=== PATIENT | male | born 1960 | race Caucasian/White ===

== ENCOUNTER → 2016-12-05 07:51 | Outpatient (CLI) | payer MEDICAID ==
[2016-07-21 10:25] VITALS: BMI 25.3
[~2016-12-05 07:51] MED LIST: ASPIRIN81 MG PO; ELIQUIS5 MG PO; FISH OIL 1,0001 CA1 PO; HYDROCODONE-APA1 TAB PO; K-DUR20 MEQ PO; LASIX20 MG PO; LEVAQUIN750 MG PO; LOPRESSOR25 MG PO; OMEPRAZOLE20 M1 PO; PROVENTIL HFA6.7 GM INH; QVAR8.7 GM INH; ZESTORETIC 20-1 EACH PO
[2016-12-05 08:54] LABS: BILIRUBIN - DIRECT 0.08 mg/dL (0.00-0.30); BILIRUBIN - INDIRECT 0.31 mg/dL (0.00-1.00); BILIRUBIN - TOTAL 0.39 mg/dL (0.2-1.3); PROTEIN - SERUM 7.5 g/dL (6.4-8.2)
== END | disposition home or self-care (01) ==
LOC: D.US 07:51
PROVIDERS: Internal Medicine Pulmonary Disease
DX: R10.11 Right upper quadrant pain (principal)

== ENCOUNTER → 2016-12-25 09:06 | Outpatient (CLI) | payer MEDICAID ==
[2016-07-21 10:25] VITALS: BMI 25.3
== END | disposition home or self-care (01) ==
LOC: D.RT 09:06
DX: J44.9 Chronic obstructive pulmonary disease, unspecified (principal)

== ENCOUNTER → 2017-01-25 12:40 | Outpatient (CLI) | payer MEDICAID ==
[2016-07-21 10:25] VITALS: BMI 25.3
== END | disposition home or self-care (01) ==
LOC: D.LAB 01-16 10:30 → D.CT 01-16 11:00
DX: I26.99 Other pulmonary embolism without acute cor pulmonale (principal)

== ENCOUNTER 2017-02-02 05:07 | Day surgery (SDC) | payer MEDICAID ==
[~2017-02-02] VITALS: Ht 175.3 cm; Wt 83.0 kg
--- NOTE | ~2017-02-02 | OP ---
PATIENT NAME: DENA WESTFALL MEDICAL RECORD: [id number] :60 LOCATION:D.OPS ADMISSION DATE: SURGEON: RASHEED AL MD DATE OF OPERATION: 02/02/2017 PREOPERATIVE DIAGNOSES: 1. Gallstones. 2. Hypertension. 3. Coronary artery disease. 4. Chronic obstructive pulmonary disease. 5. Gastroesophageal reflux disease. 6. Tobacco dependence syndrome. POSTOPERATIVE DIAGNOSES: 1. Gallstones. 2. Hypertension. 3. Coronary artery disease. 4. Chronic obstructive pulmonary disease. 5. Gastroesophageal reflux disease. 6. Tobacco dependence syndrome. PROCEDURE: Laparoscopic cholecystectomy. SURGEON: Rasheed Al MD REPORT OF PROCEDURE: The patient's abdomen was prepped and draped in sterile fashion. A cutdown was made on the superior aspect of the umbilicus. Electrocautery was used to dissect through the subcutaneous tissues, 0 Vicryls were placed in the fascia bilaterally and the fascia was incised with 15 blade and then entered the peritoneal cavity and placed a 12-mm Alyssa port. Under direct visualization, a 5 mm trocar was placed in the epigastrium and two more 5-mm trocars were placed in the right subcostal region. The gallbladder was grasped and elevated. The cystic artery and cystic duct were dissected free and these were clipped proximally and distally and ligated in standard fashion. The gallbladder was then taken off the liver bed using electrocautery and placed in the right upper quadrant. Any bleeding from the liver bed was then treated with electrocautery. The ports and insufflation were then removed and the gallbladder was taken out through the umbilicus. The umbilical fascia was closed with interrupted 0 Vicryls times 3. The wounds were irrigated out with normal saline and infused with 10 mL of 0.25% Marcaine with epinephrine. The skin incisions were all closed with subcutaneous 5-0 Monocryl and dressed appropriately. COMPLICATIONS: None. CONDITION: Stable. ANESTHESIA: General endotracheal and local. BLOOD LOSS: Minimal. TRANSINT:[id number] Voice Confirmation ID: [id number] DOCUMENT ID: [id number] OPERATIVE REPORT [id number] DENA WESTFALL RASHEED AL MD CC: VITOR FAY DO [id number] DICTATION DATE: 02/02/17 09 CLINICAL QUALITY ANALYST: 02/02/17 1749 [facility] 02/02/17 [facility] [address] [place] [address]
[~2017-02-02 05:07] MED LIST changes: +ADVIL200 MG PO; +ANORO ELLIPTA1 EACH INH; +COMBIVENT RESPIM4 GM INH; +EDARBI40 MG PO; +FLUTICASONE PRO16 GM NASAL; +MUCINEX600 MG PO; +PRAVASTATIN SOD10 MG PO; +QVAR8.7 G1 INH; +SINGULAIR10 MG PO
[2017-02-02 05:54] VITALS: BP 165/75; Ht 175.3 cm; Wt 83.0 kg
[2017-02-02 06:16] LABS: BASOPHILS 0.5 % (0-2); HEMATOCRIT 38.3 % (42.0-54.0); IMMATURE GRANULOCYTES 0.2 % (0-5); LYMPHOCYTES 19.8 % (15-50); MCH 30.2 pg (26.0-34.0); MCHC 33.9 g/dL (31.0-37.0); MCV 88.9 fL (80.0-100.0); MEAN PLATELET VOLUME 10.8 fL (7.4-10.4); MONOCYTES 9.8 % (2-11); NEUTROPHILS 63.7 % (40-80); RBC 4.31 10x6/uL (4.20-6.10); RDW 14.1 % (11.5-14.5); WBC 6.3 10x3/uL (4.8-10.8)
[2017-02-02 06:19] LABS: PLATELET COUNT 191 10x3/uL (130-400)
[2017-02-02 06:23] LABS: CALC OSMOLALITY 286 mosm/kg (275-300); CALCIUM 8.7 mg/dL (8.5-10.1); CARBON DIOXIDE 25.5 mmol/L (21.0-32.0); CHLORIDE - SERUM 108 mmol/L (98-107); GLUCOSE 133 mg/dL (74-106); POTASSIUM - SERUM 4.1 mmol/L (3.5-5.1); SODIUM 142 mmol/L (136-145); UREA NITROGEN 19 mg/dL (7-18); eGFR NON AFRICAN AMERICAN 82 mL/min (90-120)
[2017-02-02] MEDS ORDERED: HYDROCODONE-APA1 TAB PO (09:00)
--- NOTE | 2017-02-02 10:07 | NUR ---
1000-FULL LIQUIDS SERVED. CO PAIN RATED 5 ON PAIN SCALE. NORCO 10MG 1 GIVEN FOR RELIEF.
--- NOTE | 2017-02-02 15:46 | NUR ---
1030 UP TO BATHROOM VOIED 1045 IV DC WITH CATHERR TIP INTACT 1100 C/O NAUSEA 1125 STILL NAUSEA ,ZOFRAN 4MG ODT GIVEN 1200 VOMTING 1300 FEELS BETTER
== END 2017-02-02 13:00 | disposition home or self-care (01) ==
LOC: D.OPS 05:07 → D.PAN 07:30 → D.OPS 07:30
DX: K80.10 Calculus of gallbladder with chronic cholecystitis without obstruction (principal); I10 Essential (primary) hypertension; I25.10 Atherosclerotic heart disease of native coronary artery without angina pectoris; J44.9 Chronic obstructive pulmonary disease, unspecified; K21.9 Gastro-esophageal reflux disease without esophagitis; F17.200 Nicotine dependence, unspecified, uncomplicated

== ENCOUNTER 2019-03-20 10:21 | Outpatient (CLI) | payer MEDICARE, BC ==
[~2019-03-20] VITALS: Ht 175.3 cm; Wt 81.8 kg
[2019-03-20 10:39] LABS: BASOPHILS 0.4 % (0-2); EOSINOPHILS 1.8 % (0-7); HEMATOCRIT 41.8 % (42.0-54.0); HEMOGLOBIN 14.6 g/dL (13.5-17.5); IMMATURE GRANULOCYTES 0.3 % (0-5); LYMPHOCYTES 20.8 % (15-50); MCH 29.8 pg (26.0-34.0); MCHC 34.9 g/dL (31.0-37.0); MCV 85.3 fL (80.0-100.0); MONOCYTES 7.2 % (2-11); NEUTROPHILS 69.5 % (40-80); PLATELET COUNT 193 10x3/uL (130-400); RDW 13.7 % (11.5-14.5); WBC 7.3 10x3/uL (4.8-10.8)
[2019-03-20 11:03] LABS: ANION GAP 12.3 mmol/L (8-16); CALCIUM 8.8 mg/dL (8.5-10.1); CARBON DIOXIDE 27.3 mmol/L (21.0-32.0); CREATININE - SERUM 1.1 mg/dL (0.6-1.3); POTASSIUM - SERUM 4.6 mmol/L (3.5-5.1)
[2019-03-20 12:12] LABS: APTT 28.9 SECONDS (22.8-39.4); INR 1.04 (0.85-1.17); PROTIME 13.1 SECONDS (11.6-15.0)
[2019-03-20] MEDS ORDERED: TRELEGY ELLIPT1 EACH INH (12:29)
[2019-03-20 12:31] VITALS: BP 156/72; Ht 175.3 cm; Wt 81.8 kg
--- NOTE | 2019-03-20 14:01 | NUR ---
1345-DR COVARRUBIAS HERE TO SEE PATIENT. PROCEDURE CX. 1400-IV D/C AND DISCHARGE INSTRUCTIONS REVIEWED. 1402-VOIDS AND DRESSES. 1406-DISCAHRGE AMBULATORY.
== END 2019-03-20 14:06 | disposition home or self-care (01) ==
LOC: D.SP 10:21 → D.CT 13:00 → D.SP 14:06
PROVIDERS: Specialist; ATTEND Clinical Nurse Specialist Family Health
DX: R59.0 Localized enlarged lymph nodes (principal); Z53.9 Procedure and treatment not carried out, unspecified reason; Z01.812 Encounter for preprocedural laboratory examination

== ENCOUNTER → 2021-01-10 09:20 | Outpatient (CLI) | payer OTHER ==
[2019-03-20 12:31] VITALS: BMI 26.6
[~2021-01-10 09:20] MED LIST changes: +TRELEGY ELLIPT1 EACH INH
== END | disposition home or self-care (01) ==
LOC: D.HCCARDIO 09:20
PROVIDERS: ATTEND Internal Medicine Cardiovascular Disease
DX: R06.00 Dyspnea, unspecified (principal)

== ENCOUNTER 2021-01-17 06:49 | Day surgery (SDC) | payer MEDICARE ==
[~2021-01-17] VITALS: Ht 177.8 cm; Wt 83.4 kg
--- NOTE | ~2021-01-17 | HEMODYNAMI ---
PATIENT:DENA WESTFALL MEDICAL RECORD: [id number] : 60 LOCATION:[facility] ADMISSION DATE: 01/17/21 Generatedon:110:03 Patient name: DENA WESTFALL Patient #: [id number] SSN: [id number] : 1960 Date of study: 01/17/2021 Page: Of Hemodynamic Procedure Report Patient Data Patient Demographics Procedure consent was obtained First Name: DENA Gender: Male Last Name: MALOU : 1960 Middle Initial: KATHY Age: 60 year(s) Patient #: [id number] Race: Unknown SSN: [id number] Additional ID: [id number] Contact details [address]: [address] [place] [address] State: [place] City: [place] Zip code: [address] Past Medical History Allergies: No known allergies Admission Admission Data Admission Date: 01/17/2021 Admission Time: 6:49 Admit Source: Other Insurance Payor: Medicaid [facility] #: [id number] Height (in.): 69.69 BSA: 2 (m2) Height (cm.): 177 BMI: 26.49 (kg/m2) Weight (lbs.): 182.98 Weight (kg.): 83 Lab Results Lab Result Date: 01/17/2021 Lab Result Time: 0:00 Biochemistry Name Units Result Min Max BUN mg/dl 21 --(----)-* 7 18 Creatinine mg/dl 1.2 --(---*)-- 0.6 1.3 eGFR ml/min 66 *-(----)-- 90 120 NONAFRICAN CBC Name Units Result Min Max Hemoglobin g/dl 14 --(*---)-- 13.5 17.5 Procedure Procedure Types Cath Procedure Diagnostic Procedure LHC LHC w/Coronaries w/Grafts Sedation Charges Moderate Sedation 10-24 minutes Procedure Description Procedure Date Procedure Date: 01/17/2021 Procedure Start Time: 9:46 Procedure End Time: 9:57 Procedure Staff Name Function Gurvinder Anthony MD Performing Physician Ayanna Delacruz RT Monitor Maryann Lou RT Scrub Johan Tilley RN Nurse Ilia Díaz RN Nurse Procedure Data Cath Procedure Fluoroscopy Diagnostic fluoroscopy Total fluoroscopy Time: 2.6 time: 2.6 min min Diagnostic fluoroscopy Total fluoroscopy dose: 470 dose: 470 mGy mGy Contrast Material Contrast Material Type Amount (ml) Isovue 300 90 Entry Location Entry Primary Successful Side Size Upsize Upsize Entry Closure Succes sful Closure Location (Fr) 1 (Fr) 2 (Fr) Remarks Device Remarks Femoral Right 5 Fr Exoseal artery Estimated blood loss: 10 ml Diagnostic catheters Device Type Used For End Catheter Placement MULTIPACK JL 4.0 5Fr Procedure catheter MULTIPACK 3DRC 5Fr Procedure catheter MULTIPACK Pigtail 5 Fr Ventriculography catheter Procedure Complications No complications Procedure Medications Medication Administration Route Dosage 0.9% NaCl I.V. 100 ml/hr Oxygen etCO2 Nasal cannula 2 l/min Heparin Flush Bag added to field 2 bags (1000units/500ml NS) Lidocaine 2% added to field 20 Fentanyl I.V. 50 mcg Versed I.V. 1 mg Fentanyl I.V. 50 mcg Versed I.V. 1 mg Fentanyl I.V. 50 mcg Versed I.V. 1 mg Lopressor I.V. 5 mg Hemodynamics Rest BSA: 2 (m2) HGB: 14 (g/dl) O2 Consumption: Estimated: 246.77 (ml/min) O2 Consump tion indexed: Estimated:123.38 (ml/min/m) Heart Rate: 86 (bpm) Pressure Samples Time Site Value (mmHg) Purpose Heart Use Rate(bpm) 9:53 LV 190/17,23 Snapshot 71 9:54 AO 171/92(123) Pullback 71 Gradients Valve Time Site Site 2 Mean SEP/DFP Peak To Heart Use 1 (mmHg) (sec/min) Peak Rate (mmHg) (bpm) Aortic 9:54 LV AO 0 1 71 171/92(123) Calculations Valve P-P Mean Valve Index Valve Source Name Gradient Area Flow (cm2) Aortic 0 0 Snapshots Pre Cath Intra NCS Post Cath Vital Signs Time Heart Resp SPO2 etCO2 NIBP (mmHg) Rhythm Pain Sedation Rate (ipm) (%) (mmHg) Status Level (bpm) 9:37:04 83 10 100 0 200/96(154) NSR 0 (11) 10(A) , No pain 9:41:36 78 17 98 0 200/98(159) NSR 0 (11) 10(A) , No pain 9:46:11 81 19 98 0 205/104(156) NSR 0 (11) 10(A) , No pain 9:50:41 75 20 96 0 203/97(144) NSR 0 (11) 10(A) , No pain 9:55:11 74 14 97 0 195/104(145) NSR 0 (11) 10(A) , No pain 10:02:26 70 19 94 0 178/90(147) NSR 0 (11) 10(A) , No pain Medications Time Medication Route Dose Verified Delivered Reason Notes Ef fectiveness by by 9:33:39 0.9% NaCl I.V. 100 Gurvinder Johan used for ml/hr [facility] Tilley RN procedure 9:34:07 Oxygen etCO2 2 Gurvinder Johan used for Nasal l/min [facility] Tilley RN procedure cannula 9:34:17 Heparin Flush added 2 Gurvinder Gurvinder used for Bag to bags [facility] procedure (1000units/500ml field MD JAIMES NS) 9:34:29 Lidocaine 2% added 20ml Gurvinder Gurvinder for local to vial [facility] anesthetic field MD JAIMES 9:44:33 Fentanyl I.V. 50 Gurvinder Johan for sedation mcg [facility] Tilley RN, MD 9:44:40 Versed I.V. 1 mg Gurvinder Johan for sedation [facility] Til[facility] RN, MD 9:47:29 Fentanyl I.V. 50 Gurvinder Johan for sedation missy Perry RN, MD 9:47:33 Versed I.V. 1 mg Gurvinder Johan for sedation [facility] Tilley RN, MD 9:51:41 Fentanyl I.V. 50 Gurvinder Johan for sedation missy Perry RN, MD 9:51:44 Versed I.V. 1 mg Gurvinder Johan for sedation [facility] Til[facility] RN, MD 9:51:57 Lopressor I.V. 5 mg Gurvinder Johan [address] [facility] patrick MD Procedure Log Time Note 9:19:20 Informed consent obtained and on chart 9:20:17 Ilia Díaz RN sent for patient. Start room use. 9:24:51 Admit Source: Other 9:24:56 Insurance Payor : Medicaid 9:26:19 Patient Height : 69.69 inches 9::22 Patient Weight : 182.98 lbs 9:: Lab Result : eGFR NONAFRICAN 66 ml/min 9::57 Lab Result : Hemoglobin 14 g/dl 9:: Lab Result : BUN 21 mg/dl 9:: Lab Result : Creatinine 1.2 mg/dl 9:27:05 Procedure type changed to Cath procedure, Diagnostic procedure, LHC, LHC w/Coronaries w/Grafts, Sedation Charges, Moderate Sedation 10-24 minutes 9::22 Time tracking: Regular hours (M-F 7:00 - 5:00) 9::28 Plan of Care:Hemodynamics will remain stable., Cardiac rhythm will remain stable., Comfort level will be maintained., Respiratory function will remain adequate., Patient/ family verbilizes understanding of procedure., Procedure tolerated without complication., Recovers from procedure without complications.. 9:27:38 Procedure Status Elective Heart Cath (OP). 9:31:09 Patient received from Pre/Post Procedure Room to CCL 1 Alert and oriented. Tansferred to table in Supine position. 9:31:11 Warm blankets applied, and carlitos hugger turned on for patient comfort. 9:31:12 Correct patient and procedure confirmed by team. 9:31:13 ECG and BP/O2 sat monitors applied to patient. 9:33:39 0.9% NaCl 100 ml/hr I.V. was administered by Johan Tilley RN; used for procedure; Verbal order read back and verified. 9:34:07 Oxygen 2 l/min etCO2 Nasal cannula was administered by Johan Tilley RN; used for procedure; Verbal order read back and verified. 9:34:17 Heparin Flush Bag (1000units/500ml NS) 2 bags added to field was administered by Gurvinder Anthony MD; used for procedure; Verbal order read back and verified. 9:34:29 Lidocaine 2% 20ml vial added to field was administered by Gurvinder Anthony MD; for local anesthetic; Verbal order read back and verified. 9:34:36 Vital chart was started 9:39:38 Baseline sample Acquired. 9:39:46 Rhythm: sinus rhythm 9:39:49 Full Disclosure recording started 9:42:07 H&P Date Dictated: 12/27/2020 Within 30 days and on chart., H&P Addendum completed by physician on day of procedure. (MUST COMPLETE FOR ALL OUTPATIENTS). 9:42:10 Pre-procedure instructions explained to patient. 9:42:13 Family in patients room. 9:42:15 Patient NPO since Midnight. 9:42:27 Patient allergic to No known allergies 9:42:30 Is the patient allergic to Iodine/contrast media? No. 9:42:49 Was the patient premedicated? Yes 9:42:52 Is patient on blood thinner?No 9:42:53 Patient diabetic? No. 9:42:58 Snore? Yes 9:42:59 Sleep apnea? No 9:43:02 Airway obstruction? Yes ? 9:43:07 Patient pain scale 0/10 ?. 9:43:18 IV patent on arrival in left forearm with 0.9% NaCl at KVO. 9:43:28 Lab results completed and on chart. 9:43:57 Stress Test: yes; abnormal inferior/apical 9:44:03 Right groin area was prepped with chlora-prep and draped in sterile fashion 9:44:05 Alarms reviewed by R. N. 9:44:06 Sharps counted by scrub and verified by R.N. 9:44:07 Physician arrived 9:44:08 --------ALL STOP TIME OUT------ 9:44:20 Final Timeout: patient, procedure, and site verified with staff and physician. All members of the team are in agreement. 9:44:33 Fentanyl 50 mcg I.V. was administered by Johan Tilley RN; for sedation; Verbal order read back and verified. 9:44:40 Versed 1 mg I.V. was administered by Johan Tilley RN; for sedation; Verbal order read back and verified. 9:45:37 Right groin site verified by team. 9:45:41 Fire Safety Assessment: A--An alcohol-based skin anteseptic being used preoperatively., C--Open oxygen or nitrous oxide is being used., D--An ESU, laser, or fiber-optic light is being used. 9:45:47 Physical assessment completed. ASA score P 3 - A patient with severe systemic disease as per Gurvinder Anthony MD. 9:46:12 2) 60-89 Mildly reduced kidney function, and other findings (as for stage 1) point to kidney disease. 9:46:15 Maximum allowable contrast dose (3.7 X eGFR X 0.75)183 ml. 9:46:20 Sedation plan: IV Moderate Sedation Medication:Versed, Fentanyl 9:46:24 Use device set Femoral Dx 9:46:26 Procedure started. 9:46:30 Local anesthetic to right femoral artery with Lidocaine 2% by Gurvinder Anthony MD.INITIAL ACCESS ONLY 9:46:48 A 5 Fr sheath was inserted into the Right Femoral artery 9:46:50 ACIST Syringe (55542) opened to sterile field. 9:46:50 Bag Decanter (2002S) opened to sterile field. 9:46:51 Medline Cath Pack ([id number]) opened to sterile field. 9:46:52 ACIST Hand Control (45051) opened to sterile field. 9:46:53 ACIST Manifold (24245) opened to sterile field. 9:46:53 DIAGNOSTIC Multipack 5Fr catheter set ([id number]) opened to sterile field. 9:46:54 Tegaderm 4 x 4 (1626W) opened to sterile field. 9:46:56 SHEATH 5FR Knox (NTC171) opened to sterile field. 9:46:56 EMERALD Guide Wire (878-796) opened to sterile field. 9:47:29 Fentanyl 50 mcg I.V. was administered by Johan Tilley RN; for sedation; Verbal order read back and verified. 9:47:33 Versed 1 mg I.V. was administered by Johan Tilley RN; for sedation; Verbal order read back and verified. 9:47:44 A MULTIPACK JL 4.0 5Fr catheter was advanced over the wire and used for Procedure. 9:47:48 LCA angiography performed. 9:48:09 Catheter removed. 9:48:16 A MULTIPACK 3DRC 5Fr catheter was advanced over the wire and used for Procedure. 9:49:06 RCA angiography performed. 9:49:57 SVG to Diag angiography performed. 9:50:08 SVG to Circ angiography performed. 9:51:04 HAYNES to LAD angiography performed. 9:51:41 Fentanyl 50 mcg I.V. was administered by Johan Jarek RN; for sedation; Verbal order read back and verified. 9:51:44 Versed 1 mg I.V. was administered by Johan Tilley RN; for sedation; Verbal order read back and verified. 9:51:57 Lopressor 5 mg I.V. was administered by Johan Tilley RN; for hypertension; Verbal order read back and verified. 9:52:14 Catheter removed. 9:52:22 A MULTIPACK Pigtail 5 Fr catheter was advanced over the wire and used for Ventriculography. 9:52:32 LV gram done using HUA 9:52:39 Zero performed for pressure channel P1 9:54:06 EF : 30 % 9:54:08 EXOSEAL 5Fr (EX500) opened to sterile field. 9:54:18 Catheter removed. 9:54:29 Sheath removed intact; hemostasis achieved with Exoseal to the Right Femoral artery. 9:54:48 Procedure ended.(Physican Out) 9:55:01 Fluoroscopy time 02.60 minutes. 9:55:37 Fluoroscopy dose: 470 mGy 9:55:37 Flurop Dose total: 470 9:55:44 Dose Area Product 85022 mGy/cm. 9:55:48 Contrast amount:Isovue 300 90ml. 9:55:51 Maximum allowable dose exceeded? No. 9:55:52 Sharps counted by scrub and verified by R.N. 9:55:54 Insertion/operative site no bleeding no hematoma. 9:55:58 Post-op/insertion site Right Femoral artery dressed using a 4 x 4 and Tegaderm. 9:56:08 Post-procedure physical assessment completed. ASA score P 3 - A patient with severe systemic disease as per Gurvinder Anthony MD. 9:56:11 Post procedure rhythm: unchanged. 9:56:14 Estimated blood loss: 10 ml 9:56:16 Post procedure instruction explained to patient.Patient verbalizes understanding. 9:56:31 Procedure and supply charges have been captured, reviewed, submitted and are correct. 9:57:07 Procedure Complication : No complications 9:57:10 Vital chart was stopped 9:57:15 [facility] Findings: mild to moderate CAD (<70%) 9:57:24 Operative report dictated upon procedure completion. 9:57:33 Patient transfered to Pre/Post Procedure Room with Stretcher. 9:57:36 Procedure ended. 9:57:36 Full Disclosure recording stopped 9:57:43 End room use (Document Last) 9:58:05 End room use (Document Last) 9:58:44 End room use (Document Last) Device Usage Item Name Manufacture Quantity Catalog Hospital Part Current Minimal L ot# / Number Charge Number Stock Stock Serial# Code ACIST Acist 1 85279 653255 768142 251216 20 Syringe Medical (66720) Systems Inc Bag Microtek 1 2001S 283605 12915 925459 5 Decanter Medical Inc. (2001S) Medline Medline 1 [id number] 994263 81058 080123 5 Cath Pack ([id number]) ACIST Hand Acist 1 10394 388519 607208 627636 5 Control Medical (57389) Systems Inc ACIST Acist 1 55853 851284 457967 058783 5 Manifold Medical (00527) Systems Inc DIAGNOSTIC Cardinal 1 [id number] 647506 36361 118739 30 Multipack Health 5Fr catheter set (LK8379) Tegaderm 4 3M 1 1626W 134463 084893 451181 5 x 4 (1626W) SHEATH 5FR Terumo 1 RLK038 367977 578253 944736 5 Knox (CQF189) EMERALD Cardinal 1 502-455 100962 147498 624938 5 Guide Wire Health (502-455) MULTIPACK Cardinal 1 083590 5 JL 4.0 5Fr Health catheter MULTIPACK Cardinal 1 562122 5 3DRC 5Fr Health catheter MULTIPACK Cardinal 1 170661 5 Pigtail 5 Health Fr catheter EXOSEAL 5Fr Cardinal 1 EX500 207601 201701 [id number] 10 (EX500) Health Signature Audit [place] Stage Time Signature Unsigned Intra-Procedure 01/17/2021 Ayanna Delacruz 9:58:05 AM RT(R) Intra-Procedure 01/17/2021 Ilia Díaz RN 9:58:44 AM Intra-Procedure 01/17/2021 Gurvinder Hastings 10:02:59 AM Benton JAIMES [facility] [address] [place] [address]
[2021-01-17] MEDS ORDERED: ZYRTEC10 MG PO (07:38)
[2021-01-17] MEDS ORDERED: FEXOFENADINE HC60 MG PO (07:39)
[2021-01-17] MEDS ORDERED: GLUCOPHAGE1000 MG PO (07:40)
[2021-01-17] MEDS ORDERED: ZOFRAN ODT4 MG/UDTAB PO (07:43)
[2021-01-17] MEDS ORDERED: OMEPRAZOLE20 M1 PO (07:43)
[2021-01-17 07:54] VITALS: BP 209/89; Ht 177.8 cm; Wt 83.4 kg
[2021-01-17 08:07] LABS: BASOPHILS 0.7 % (0-2); EOSINOPHILS 2.3 % (0-7); HEMATOCRIT 42.2 % (42.0-54.0); LYMPHOCYTES 17.3 % (15-50); MCH 28.4 pg (26.0-34.0); MCHC 33.3 g/dL (31.0-37.0); MCV 85.4 fL (80.0-100.0); MEAN PLATELET VOLUME 8.9 fL (7.4-10.4); MONOCYTES 10.3 % (2-11); NEUTROPHILS 69.4 % (40-80); PLATELET COUNT 211 10x3/uL (130-400); RBC 4.94 10x6/uL (4.20-6.10); RDW 14.4 % (11.5-14.5); WBC 7.6 10x3/uL (4.8-10.8)
[2021-01-17 08:18] LABS: ANION GAP 13.2 mmol/L (8-16); CALCIUM 8.8 mg/dL (8.5-10.1); CARBON DIOXIDE 26.7 mmol/L (21.0-32.0); CHOL - HDL RATIO 3.7 ratio (2.3-4.9); CREATININE - SERUM 1.2 mg/dL (0.6-1.3); LDL-HDL RATIO 2.2 ratio (1.5-3.5); POTASSIUM - SERUM 3.9 mmol/L (3.5-5.1)
--- NOTE | 2021-01-17 10:07 | NUR ---
PT ARRIVED BY STRETCHER. PLACED ON MONITORS. ASSESSMENT COMPLETED. VSS AT THIS TIME. CALL LIGHT WITHIN REACH.
[2021-01-17] MEDS ORDERED: ALDACTONE25 MG PO (10:19)
--- NOTE | 2021-01-17 10:22 | NUR ---
RIGHT GROIN DRESSING C/D/I. NO S/S OF HEMATOMA NOTED. RIGHT PEDAL PULSE PALPALBLE. PT RESTING COMFORTABLY. VSS. NO NEEDS AT THIS TIME. DENIES NAUSEA/PAIN.
--- NOTE | 2021-01-17 10:50 | NUR ---
RIGHT GROIN DRESSING C/D/I. NO S/S OF HEMATOMA NOTED. RIGHT PEDAL PULSE PALPABLE. DR. JOHNSON ROUNDED AND SPOKE WITH PT AND PT'S NIECE. CALL LIGHT WITHIN REACH. VSS.
--- NOTE | 2021-01-17 11:05 | NUR ---
RIGHT GROIN DRESSING C/D/I. NO S/S OF HEMATOMA NOTED. CALL LIGHT WITHIN REACH. HEAD OF BED INC TO 30 DEGREES. TOLERATED WELL. SET UP WITH SANDWICH TRAY AND DRINK. DENIES NAUSEA/PAIN.
--- NOTE | 2021-01-17 11:30 | NUR ---
RIGHT GROIN DRESSING C/D/I. NO S/S OF HEMATOMA NOTED. CALL LIGHT WITHIN REACH. RIGHT PEDAL PULSE PALPABLE. PT VOIDED 250cc OF CLEAR YELLOW URINE IN URINAL WITHOUT DIFFICULTY.
--- NOTE | 2021-01-17 11:36 | NUR ---
BP 190/127. DR. JOHNSON NOTIFIED. ORDERS RECEIVED FOR PT TO BE GIVEN CLONIDINE 0.1MG PO PRIOR TO DISCHARGE, BUT TO CONTINUE WITH DISCHARGE PLANNED.
--- NOTE | 2021-01-17 12:00 | NUR ---
BP 177/74. PT DENIES ANY NAUSEA/PAIN. RIGHT GROIN DRESSING C/D/I. NO S/S OF HEMATOMA NOTED. PIV D/C'D WITH CATH TIP INTACT. TOLERATED WELL. PT INSTRUCTED TO GET UP AND DRESSED AT THIS TIME. NO ASSISTANCE NEEDED. CALL LIGHT WITHIN REACH. DISCUSSED DISCHARGE INSTRUCTIONS WITH PT. HE VOICED UNDERSTANDING.
--- NOTE | 2021-01-17 12:15 | NUR ---
PT AMBULATED TO RESTROOM. VOIDED WITHOUT DIFFICULTY. STEADY GAIT NOTED. RIGHT GROIN DRESSING C/D/I. NO S/S OF HEMATOMA NOTED. PT TAKEN OUT TO VEHICLE BY WHEELCHAIR. NO S/S OF DISTRESS NOTED. ALL BELONGINGS AND PAPERWORK IN HAND.
--- NOTE | 2021-01-18 14:07 | OP ---
PATIENT NAME: DENA WESTFALL MEDICAL RECORD: [id number] :60 LOCATION:D.[facility] ADMISSION DATE: SURGEON: NITA JOHNSON MD DATE OF OPERATION: 01/17/2021 PROCEDURE: Left heart cath, selective coronary angiography plus bypass graft plus HAYNES, right femoral artery approach. CATHETERS: A 5-Israeli sheath, 5/4 left and right Julianna, 5/4 pig. The procedure was well tolerated. The patient returned the jasso. Sheath removed. ExoSeal device was placed. FINDINGS: Left ventriculography 30 degree HUA view shows global hypokinesis, EF 30% to 35%. CORONARY ANATOMY: LEFT MAIN: Left main tapers about 80% stenosis. LAD: LAD fills for a short period of time and it is seen filling with competitive flow. CIRCUMFLEX: The circumflex can be seen filling competitive flow from the bypass graft. RIGHT CORONARY ARTERY: Totally occluded and filled well via left to right collaterals. BYPASS GRAFTS: HAYNES to LAD is widely patent throughout its course without evidence of post-anastomotic stenosis. SAPHENOUS VEIN GRAFT: To the diagonal is widely patent throughout its course without evidence of post-anastomotic stenosis. SAPHENOUS VEIN GRAFT TO THE CIRC OM SYSTEM: Widely patent throughout its course. No evidence post-anastomotic stenosis. IMPRESSION AND PLAN: Widely patent bypass grafts. Left ventricular function decreased, may explain the large portion of his symptoms. We will add Aldactone to his underlying ARB and beta blockade therapy for ionotropic support as well as hypertension. TRANSINT:[id number] Voice Confirmation ID: [id number] DOCUMENT ID: [id number] NITA JOHNSON MD at 1407 CC: [id number] DICTATION DATE: 01/17/21 1003 ASSISTANT FINANCE MANAGER: 01/17/21 1250 [facility] 01/17/21 [facility] [address] [place] [address]
== END 2021-01-17 12:15 | disposition home or self-care (01) ==
LOC: D.CATH 06:49
PROVIDERS: ATTEND Internal Medicine Interventional Cardiology
DX: I10 Essential (primary) hypertension (principal); I25.119 Atherosclerotic heart disease of native coronary artery with unspecified angina pectoris; E78.5 Hyperlipidemia, unspecified; I42.9 Cardiomyopathy, unspecified